=== PATIENT | male | born 1990 | race Two or more races ===

== ENCOUNTER 2021-07-16 19:21 | Emergency (ER) | payer OTHER ==
[~2021-07-16] VITALS: Ht 180.3 cm; Wt 113.6 kg
[2021-07-16 21:10] VITALS: BP 135/67
== END 2021-07-16 21:27 | disposition home or self-care (01) ==
LOC: EMS 19:23
DX: M54.50 Low back pain, unspecified (principal)
CPT/HCPCS: 99281; Z7502